=== PATIENT | male | born 1950 | race Caucasian/White ===

== ENCOUNTER 2021-05-15 10:00 | Emergency (ER) | payer MEDICARE ==
[~2021-05-15] VITALS: Ht 177.8 cm; Wt 82.7 kg
[2021-05-15] MEDS ORDERED: IPRATROPIU0.2 MG/1 M INH (10:26)
[2021-05-15] MEDS ORDERED: CELEBREX200 MG PO (10:26)
[2021-05-15] MEDS ORDERED: DEXAMETHASONE SOD PHOS 10 MG/1 ML VIAL IM ONE (10:30)
[2021-05-15] MEDS ORDERED: CEFTRIAXONE 1 GM VIAL IM ONE (10:30)
[2021-05-15] MEDS ORDERED: DEXAMETHASONE SOD PHOS INJ 4 MG/ML SDV ONE (10:42)
[2021-05-15] MEDS ORDERED: CEFTRIAXONE 1 GM VIAL ONE (10:43)
[2021-05-15] MEDS ORDERED: PREDNISONE20 MG PO (10:45)
[2021-05-15] MEDS ORDERED: CEFDINIR300 MG PO (10:45)
[2021-05-15] MEDS ORDERED: TESSALON PERLE100 MG PO (10:45)
== END 2021-05-15 10:52 | disposition home or self-care (01) ==
LOC: FSED 10:29
DX: R05.9 Cough, unspecified (principal); J20.9 Acute bronchitis, unspecified; J01.90 Acute sinusitis, unspecified
CPT/HCPCS: 96372; 99283; J0696; J1100